=== PATIENT | male | born 1970 | race Caucasian/White ===

== ENCOUNTER 2020-08-25 19:26 | Emergency (ER) | payer OTHER ==
[~2020-08-25] VITALS: Ht 190.5 cm; Wt 95.0 kg
[2020-08-25] MEDS ORDERED: KEFLEX500 MG PO (20:29)
[2020-08-25] MEDS ORDERED: IBU800 MG PO (20:29)
== END 2020-08-25 20:45 | disposition home or self-care (01) ==
LOC: ED 19:26
DX: K08.89 Other specified disorders of teeth and supporting structures (principal); F17.200 Nicotine dependence, unspecified, uncomplicated
CPT/HCPCS: 99282